=== PATIENT | female | born 1975 | race Two or more races ===

== ENCOUNTER 2022-07-10 23:03 | Emergency (ER) | payer OTHER ==
[2022-07-10 23:10] VITALS: BP 175/80; PULSE 102; RESP 18; TEMP 98.1; BMI 27.3
== END 2022-07-11 01:11 | disposition left against medical advice (07) ==
LOC: JER 23:03
DX: R53.1 Weakness (principal); M25.511 Pain in right shoulder; K21.9 Gastro-esophageal reflux disease without esophagitis
CPT/HCPCS: 82962; 93005; 93010; 99283-25

== ENCOUNTER 2022-11-28 23:22 | Emergency (ER) | payer OTHER ==
[2022-11-28 23:29] VITALS: RESP 16; BMI 29.2
[2022-11-29 01:38] LABS: BASO % 0.7 % (0-2.0); EOS % 0.3 % (0-4.5); HEMATOCRIT 37.4 % (32.4-45.2); HEMOGLOBIN 12.8 GM/dL (10.7-15.3); LYMPH % 16.2 % (8-40); MCH 31.4 pg (25.7-33.7); MCHC 34.1 g/dl (32.0-36.0); MEAN CELL VOLUME 91.9 fl (80-96); MEAN PLT VOLUME 8.7 fl (7.5-11.1); NEUT % 73.8 % (42.8-82.8); PLATELET COUNT 220 10^3/uL (134-434); RBC 4.07 M/mm3 (3.60-5.2); RDW 13.9 % (11.6-15.6); WHITE BLOOD COUNT 8.9 K/mm3 (4.0-10.0)
[2022-11-29 01:58] LABS: POTASSIUM 4.1 mmol/L (3.5-5.1)
[2022-11-29 02:00] LABS: ALBUMIN 4.3 g/dl (3.4-5.0); BLOOD UREA NITROGEN 15.3 mg/dL (7-18); CALCIUM 9.5 mg/dL (8.5-10.1)
[2022-11-29 02:03] LABS: CREATININE 0.9 mg/dL (0.55-1.3)
[2022-11-29 02:05] LABS: BILIRUBIN,TOTAL 0.3 mg/dL (0.2-1)
[2022-11-29 03:22] VITALS: BP 139/76; PULSE 62; TEMP 97.3
== END 2022-11-29 05:22 | disposition home or self-care (01) ==
LOC: JER 23:22
DX: R07.89 Other chest pain (principal)
CPT/HCPCS: 36415; 71046-TC-FY; 80053; 84484; 85025; 93005; 93010; 99285-25